=== PATIENT | male | born 1940 | race African-American/Black ===

== ENCOUNTER 2019-05-12 07:26 | Emergency (ER) | payer OTHER ==
[~2019-05-12] VITALS: Ht 182.9 cm; Wt 95.3 kg
[2019-05-12 08:12] LABS: ABSOLUTE NEUTROPHILS 13.5 thou/uL (1.4-8.2); BASOPHILS 0.4 % (0.0-2.0); HEMATOCRIT 35.3 % (42.0-52.0); LYMPHOCYTES 10.5 % (24.0-44.0); MCH 30.7 pg (26.0-34.0); MCHC 33.8 g/dL (28.0-37.0); MCV 90.7 fL (80.0-100.0); MONOCYTES 5.2 % (1.0-8.0); PLATELET COUNT 169 thou/uL (150-400); POLYS 83.9 % (36.0-66.0); RBC 3.89 mil/uL (4.50-6.00); RDW 14.1 % (10.5-14.5); WBC 16.1 thou/uL (4.0-11.0)
[2019-05-12 08:20] LABS: CALCIUM 9.2 mg/dL (8.5-10.1); CREATININE 1.3 mg/dL (0.7-1.3); POTASSIUM 4.3 mmol/L (3.5-5.1)
[2019-05-12 08:26] LABS: APTT 28.5 Seconds (24.5-32.8); PROTIME 10.6 Seconds (9.3-11.4)
[2019-05-12 09:16] LABS: URINE BILIRUBIN NEGATIVE (Negative); URINE BLOOD 3+ (Negative); URINE CLARITY CLOUDY; URINE COLOR RED; URINE GLUCOSE-RANDOM* TRACE (Negative); URINE KETONES TRACE (Negative); URINE PROTEIN (DIPSTICK) 3+ (Negative)
[2019-05-12 09:17] LABS: URINE LEUKOCYTES-REFLEX 1+ (Negative); URINE NITRITE-REFLEX POSITIVE (Negative)
[2019-05-12 09:27] LABS: CASTS None Seen /LPF (None Seen); CRYSTALS None Seen /LPF (None Seen); SQUAMOUS 0-3 Few /LPF (0-3); URINE RBC >20 Many /HPF (0-2)
[2019-05-12 09:28] LABS: URINE WBC-REFLEX 6-15 Few /HPF (0-5)
[2019-05-12 11:56] VITALS: BP 148/80
== END 2019-05-12 11:50 ==
LOC: ER 07:26
PROVIDERS: Emergency Medicine
DX: N39.0 Urinary tract infection, site not specified (principal); N32.0 Bladder-neck obstruction; Z87.891 Personal history of nicotine dependence